=== PATIENT | female | born 1985 | race American Indian/Alaskan Native ===

== ENCOUNTER 2021-04-18 22:46 | Emergency (ER) | payer MEDICAID ==
[2021-04-19 01:31] LABS: Hematocrit 40.3 % (30.3-42.9); Mean Corpuscular HGB Conc 35 % (30-34); Mean Corpuscular Volume 97 fl (79-97); Platelet Count 234 K/mm3 (140-440); Red Blood Count 4.14 M/mm3 (3.65-5.03); Red Cell Distribution Width 13.5 % (13.2-15.2)
--- NOTE | 2021-04-19 01:43 | XRay Report ---
CHEST 2 VIEWS INDICATION: cough, shortness of breath, covid+. COMPARISON: None FINDINGS: SUPPORT DEVICES: None. HEART: Within normal limits. LUNGS/PLEURA: Mild patchy bibasilar predominant airspace opacities with no pleural effusion. No pneum othorax. ADDITIONAL FINDINGS: None. IMPRESSION: 1. Pulmonary findings as above. Signer Name: Sammy Hooper MD Signed: 04/19/2021 1:39 AM Workstation Name: [id number]
[2021-04-19 01:49] LABS: Alanine Aminotransferase 35 units/L (7-56); Albumin 3.3 g/dL (3.9-5); Blood Urea Nitrogen 9 mg/dL (7-17); Calcium 8.5 mg/dL (8.4-10.2); Hemolysis Index 2
[2021-04-19 01:50] LABS: BUN/Creatinine Ratio 15
[2021-04-19 02:16] LABS: RBC Morphology Normal; Total Cells Counted 100
[2021-04-19 03:44] VITALS: BP 103/56
--- NOTE | 2021-04-19 05:48 | Emergency Department Report ---
ED Shortness of Breath HPI - General Chief Complaint: Dyspnea/Respdistress Stated Complaint: SHORTNESS OF BREATH AND DIZZINESS + COVID ON 04/06 Time Seen by Provider: 04/19/21 04:23 Source: patient Mode of arrival: Ambulatory Limitations: No Limitations - History of Present Illness Initial Comments: 35-year-old F [place] female is 26 weeks presents emergency department complaining of pain diagnosed with Covid on April 06 and has residual cough and congestion shortness of breath and discomfort to her chest of an unknown etiology. She reports some nausea but no vomiting myalgias with coryza. But no hemoptysis no hematemesis hematochezia Severity: mild Quality: dull Consistency: constant Improves With: nothing Worsens With: nothing Associated Symptoms: cough Treatments Prior to Arrival: none - Related Data Previous Rx's Medication Instructions Recorded Last Taken Type Albuterol Mdi (or & Nicu Only) 1 puff IH QID PRN #8.5 gram 04/19/21 Unknown Rx [ProAir HFA Inhaler] Azithromycin [Zithromax] 250 mg PO DAILY #6 tablet 04/19/21 Unknown Rx Allergies Allergy/AdvReac Type Severity Reaction Status Date / Time No Known Allergies Allergy Unverified 04/19/21 01:02 ED Review of Systems ROS: Stated complaint: SHORTNESS OF BREATH AND DIZZINESS + COVID ON 04/06 Other details as noted in HPI Comment: All other systems reviewed and negative ED Past Medical Hx - Past Medical History Previous Medical History?: No - Surgical History Additional Surgical History: x2 - Medications Home Medications: Home Medications Medication Instructions Recorded Confirmed Last Taken Type Albuterol Mdi (or & Nicu Only) 1 puff IH QID PRN #8.5 gram 04/19/21 Unknown Rx [ProAir HFA Inhaler] Azithromycin [Zithromax] 250 mg PO DAILY #6 tablet 04/19/21 Unknown Rx ED Physical Exam - General Limitations: No Limitations General appearance: alert, in no apparent distress - Head Head exam: Present: atraumatic, normocephalic - Eye Eye exam: Present: normal appearance - ENT ENT exam: Present: mucous membranes moist - Neck Neck exam: Present: normal inspection - Respiratory Respiratory exam: Present: normal lung sounds bilaterally, rhonchi (To the base). Absent: respiratory distress - Cardiovascular Cardiovascular Exam: Present: regular rate, normal rhythm. Absent: systolic murmur, diastolic murmur, rubs, gallop - GI/Abdominal GI/Abdominal exam: Present: soft, normal bowel sounds - Extremities Exam Extremities exam: Present: normal inspection - Back Exam Back exam: Present: normal inspection - Neurological Exam Neurological exam: Present: alert, oriented X3 - Psychiatric Psychiatric exam: Present: normal affect, normal mood - Skin Skin exam: Present: warm, dry, intact, normal color. Absent: rash ED Course Vital Signs 04/19/21 00:56 Temperature 97.8 F Pulse Rate 99 H Respiratory 18 Rate Blood Pressure 103/56 O2 Sat by Pulse 96 Oximetry ED Medical Decision Making - Lab Data Result diagrams: 04/19/21 01:14 04/19/21 01:14 - Radiology Data Radiology results: report reviewed [facility] [address] [place] [address] XRay Report Signed Patient: FRANTZ HUNT MR#: [id number] : 1985 Acct:[id number] Age/Sex: 35 / F ADM Date: 04/18/21 Loc: ED Attending Dr: Ordering Physician: ED MD MARIANO Date of Service: 04/19/21 Procedure(s): XR chest routine 2V Accession Number(s): [id number] cc: ED MD MARIANO Fluoro Time In Minutes: CHEST 2 VIEWS INDICATION: cough, shortness of breath, covid+. COMPARISON: None FINDINGS: SUPPORT DEVICES: None. HEART: Within normal limits. LUNGS/PLEURA: Mild patchy bibasilar predominant airspace opacities with no pleural effusion. No pneumothorax. ADDITIONAL FINDINGS: None. IMPRESSION: 1. Pulmonary findings as above. Signer Name: Sammy Hooper MD Signed: 04/19/2021 1:39 AM Workstation Name: [id number] Transcribed By: JW Dictated By: Sammy Hooper MD Electronically Authenticated By: Sammy Hooper MD Signed Date/Time: 04/19/21138 DD/ 7 TD/TT: Print Cancel - Medical Decision Making This patient presents to the emergency department with fever and lower respiratory symptoms concerning for viral syndrome including flu and COVID-19. Patient has been diagnosed with COVID-19 infection April 06 and now progressively worsening symptoms have discovered that bilateral opacities suggestive of pneumonia and worsening symptoms.. Differential diagnosis includes other viral causes of lower respiratory symptoms, asthma, bronchitis. Patient is well- appearing with acceptable vitals, lacks comorbidities admission and a reassuring physical examination and is safe to be discharged home nasal swab for COVID testing is recommended. Provide strict return precautions and instructions on self isolation/quarantine and anticipatory guidance. During ambulation patient maintained normal saturations and heart rate returned to baseline after 2 minutes. There was no shortness of breath or dyspnea Critical care attestation.: If time is entered above; I have spent that time in minutes in the direct care of this critically ill patient, excluding procedure time. ED Disposition Clinical Impression: Pneumonia due to COVID-19 virus, COVID-19 affecting in second trimester Disposition: DC-01 TO HOME OR SELFCARE Is pt being admited?: No Does the pt Need Aspirin: No Condition: Stable Instructions: COVID-19 Frequently Asked Questions, COVID-19, and COVID-19, Prevent the Spread of COVID-19 if You Are Sick - CDC, Bacterial Pneumonia (ED) Additional Instructions: Please adhere to the patient instructions as we discussed although currently your symptoms are not consistent with an overt assessment of COVID-19 this could change within the next few days. Please return to the emergency department should you experience any coughing up blood, shortness of breath, severe fever, chest pain, or any suggestion that your condition is worsening. Your chest x- ray was normal your vital signs were stable with a slight elevation in your heart rate at 106 please make sure to hydrate well and take the antipyretics for your temperature increased on your antioxidant vitamins also obtain a pulse oximeter/pulse ox of others [id number] and monitor your saturation should your saturations drop below 93% please follow-up with the emergency department for reevaluation and from further intervention. Make sure you take all antibiotics as as prescribed in their entirety. Prescriptions: Albuterol Mdi (or & Nicu Only) [ProAir HFA Inhaler] 1 puff IH QID PRN #8.5 gram PRN Reason: sob Azithromycin [Zithromax] 250 mg PO DAILY #6 tablet Referrals: [facility] [Provider Group] - 3-5 Days PRIMARY CARE,MD [Primary Care Provider] - 3-5 Days
== END 2021-04-19 08:03 | disposition home or self-care (01) ==
LOC: ED 22:46
DX: O98.512 Other viral diseases complicating pregnancy, second trimester (principal); U07.1 COVID-19; J12.82 Pneumonia due to coronavirus disease 2019; Z3A.26 26 weeks gestation of pregnancy
CPT/HCPCS: 36415; 71046; 80053; 85007; 85025; 99283

== ENCOUNTER 2021-06-23 06:01 | Inpatient (IN) | payer MEDICAID ==
[2021-06-23] MEDS ORDERED: LACTATED RINGERS 1,000 ML ONE ×2 (06:42→08:56)
[2021-06-23] MEDS ORDERED: OXYTOCIN DRIP 30 UNITS/500 ML BAG IV SCH ×2 (07:00→11:32)
[2021-06-23] MEDS ORDERED: FAMOTIDINE 20 MG/2 ML INJ IV SCH (07:00)
[2021-06-23] MEDS ORDERED: BICITRA ORAL LIQD 30ML PO SCH (07:00)
[2021-06-23] MEDS ORDERED: LACTATED RINGERS 1,000 ML IV SCH (07:00)
[2021-06-23] MEDS ORDERED: METOCLOPRAMIDE 10 MG/2 ML INJ IV SCH (07:00)
[2021-06-23 07:10] LABS: Basophils # (Auto) 0.1 K/mm3 (0.0-0.1); Basophils % (Auto) 0.9 % (0.0-1.8); Eosinophils # (Auto) 0.1 K/mm3 (0.0-0.4); Eosinophils % (Auto) 0.7 % (0.0-4.3); Hematocrit 38.1 % (30.3-42.9); Hemoglobin 12.6 gm/dl (10.1-14.3); Lymphocytes # (Auto) 1.8 K/mm3 (1.2-5.4); Lymphocytes % (Auto) 23.8 % (13.4-35.0); Mean Corpuscular HGB Conc 33 % (30-34); Mean Corpuscular Volume 97 fl (79-97); Monocytes # (Auto) 0.7 K/mm3 (0.0-0.8); Platelet Count 202 K/mm3 (140-440); Red Blood Count 3.91 M/mm3 (3.65-5.03)
--- NOTE | 2021-06-23 07:50 | History and Physical Report ---
History of Present Illness Date of examination: 06/23/21 Date of admission: 06/23/21 06:01 Chief complaint: I'm here for my and to get my tubes tied History of present illness: Pt is a 35 year old who presesnts for elective repeat along with tubal ligation. Pt has had an uncomplicated course except for some irregularity with visits. All labs have been normal Past History Past Medical History: no pertinent history Past Surgical History: section (x2) Social history: single - Obstetrical History Expected Date of Delivery: 06/30/21 Actual Gestation: 39 Week(s) 2 Day(s) : 6 Medications and Allergies Allergies Allergy/AdvReac Type Severity Reaction Status Date / Time No Known Allergies Allergy Unverified 04/19/21 01:02 Home Medications Medication Instructions Recorded Confirmed Last Taken Type Albuterol Mdi (or & Nicu Only) 1 puff IH QID PRN #8.5 gram 04/19/21 Unknown Rx [ProAir HFA Inhaler] Azithromycin [Zithromax] 250 mg PO DAILY #6 tablet 04/19/21 Unknown Rx Active Meds: Active Medications Citric Acid/Sodium Citrate (Bicitra Oral Liqd 30ml) 30 ml PO PREOP JENSEN Stop: 06/23/21 15:00 Last Admin: 06/23/21 07:24 Dose: 30 ml Documented by: Famotidine (Famotidine 20 Mg/2 Ml Inj) 20 mg IV PREOP JENSEN Stop: 06/23/21 15:00 Last Admin: 06/23/21 07:24 Dose: 20 mg Documented by: Lactated Ringer's (Lactated Ringers) 1,000 mls @ 2,250 mls/hr IV PREOP JENSEN Stop: 06/24/21 07:27 Oxytocin/Sodium Chloride (Pitocin/Ns 30 Unit/500ml) 30 units in 500 mls @ 0 mls/hr IV TITR JENSEN; Protocol Metoclopramide HCl (Metoclopramide 10 Mg/2 Ml Inj) 10 mg IV PREOP JENSEN Stop: 06/23/21 14:00 Last Admin: 06/23/21 07:25 Dose: 10 mg Documented by: Review of Systems All systems: negative Genitourinary: deferred - Vital Signs Vital signs: Vital Signs Pulse Pulse Ox 94 H 96 06/23/21 06:51 06/23/21 06:51 Temp Pulse Resp BP Pulse Ox 88 111/71 97 06/23/21 07:36 06/23/21 07:03 06/23/21 07:36 - Physical Exam Breasts: Positive: deferred Cardiovascular: Regular rate, Normal S1, Normal S2 Lungs: Positive: Clear to auscultation, Normal air movement Abdomen: Positive: normal appearance, soft, normal bowel sounds Genitourinary (Female): Positive: normal external genitalia, normal perenium Uterus: Positive: enlarged Extremities: Positive: normal - Obstetrical FHR: auscultation normal Cervical Dilatation: 0 Results Result Diagrams: 06/23/21 23:16 Abnormal lab results 06/23/21 Range/Units 06:45 Grady % (Auto) 9.0 H (0.0-7.3) % All other labs normal. Assessment and Plan IUP at 39.2 weeks here for elective repeat with btl. Admit for same. All consents have been signed. Proceed with delivery.
[2021-06-23] MEDS ORDERED: ePHEDrine SULFATE 50 MG/1 ML INJ ONE (07:54)
[2021-06-23] MEDS ORDERED: PHENYLEPHRINE/NS 1,000 MCG/10 ML SYRINGE (OR USE) IV ONE (07:54)
[2021-06-23] MEDS ORDERED: dexAMETHasone 20 MG/5 ML VIAL ONE (07:55)
[2021-06-23] MEDS ORDERED: BUPIVACAINE/PF (0.5%) 5 MG/1 ML 30 ML VIAL INFILTRATI ONE (07:55)
[2021-06-23] MEDS ORDERED: KETOROLAC 30 MG/1 ML INJ ONE (07:55)
[2021-06-23] MEDS ORDERED: ONDANSETRON 4 MG/2 ML INJ ONE ×2 (07:55→09:00)
--- NOTE | 2021-06-23 08:09 | Anesthesia Day of Surgery ---
Anesthesia Day of Surgery - Day of Surgery Patient Examined: Yes Patient H&P Reviewed: Yes Patient is NPO: Yes Beta Blockers: No Cardiac Clearance: No Pulmonary Clearance: No Neo's Test: N/A
--- NOTE | 2021-06-23 08:10 | Anesthesia Consultation ---
Anesthesia Consult and Med Hx Date of service: 06/23/21 - Airway Anesthetic Teeth Evaluation: Good ROM Head & Neck: Adequate Mental/Hyoid Distance: Adequate Mallampati Class: Class III Intubation Access Assessment: Probably Good - Pulmonary Exam CTA: Yes - Cardiac Exam Cardiac Exam: RRR - Pre-Operative Health Status ASA Pre-Surgery Classification: ASA2 Proposed Anesthetic Plan: Spinal Nerve Block: TAP - Pulmonary Hx Smoking: Yes Hx Asthma: No COPD: No Hx Pneumonia: No Hx Sleep Apnea: No - Cardiovascular System Hx Hypertension: No Hx Heart Attack/AMI: No Hx Angina: No - Central Nervous System Hx Seizures: No Hx Psychiatric Problems: No - Gastrointestinal Hx Gastroesophageal Reflux Disease: No - Endocrine Hx Renal Disease: No Hx End Stage Renal Disease: No Hx Hypothyroidism: No Hx Hyperthyroidism: No - Hematic Hx Anemia: No Hx Sickle Cell Disease: No - Other Systems Hx Alcohol Use: Yes - Additional Comments Anesthesia Medical History Comments: previous c/s x2
--- NOTE | 2021-06-23 08:11 | Progress Note ---
Spinal Anesthesia Block - Spinal Anesthesia Block Start Time: 07:45 Stop Time: 07:50 Performed by:: ZAKIYA MADDEN ([facility]) Procedure: Spinal anesthesia block is being performed for [C/S]. H&P, labs have been reviewed. Patient's questions and concerns have been answered. Informed consent has been performed. Timeout has was performed. Patient in sitting position on side of bed. Sterile prep and drape was performed. 3 mL 1% lid ocaine skin wheal at L [3]-L [4]. Needle introducer advanced. 25-gauge spinal needle advanced, [+] CSF [-] blood. [Marcaine 10mg and Precedex 5mcg] Spinal dose was given. All needles removed. Patient tolerated procedure well.
[2021-06-23] MEDS ORDERED: OXYTOCIN 10 UNIT/1 ML INJ ONE (08:35)
[2021-06-23] MEDS ORDERED: PROMETHAZINE 25 MG RECT SUPP PR PRN (09:00)
[2021-06-23] MEDS ORDERED: NalbUPHINE 10 MG/1 ML INJ IV PRN (09:00)
[2021-06-23] MEDS ORDERED: PROMETHAZINE 25 MG TAB PO PRN (09:00)
[2021-06-23] MEDS ORDERED: diphenhydrAMINE 50 MG/ML VIAL IV PRN (09:00)
[2021-06-23] MEDS ORDERED: NALOXONE 0.4 MG/1 ML INJ IV PRN ×2 (09:00→11:32)
[2021-06-23] MEDS ORDERED: HYDROmorphone 1 MG/1 ML INJ IV PRN (09:00)
[2021-06-23] MEDS ORDERED: ONDANSETRON 4 MG/2 ML INJ IV PRN (09:00)
--- NOTE | 2021-06-23 09:11 | Operative Report ---
Operative Report Operative Report: Preoperative diagnosis: Intrauterine at 39 weeks 2. Previous x2 3. Undesired fertility Postoperative diagnosis: Same Procedure: Repeat low transverse section, Bilateral tubal ligation Surgeon: Dr. Yvette Bell EBL: 500cc Urine output: 200 mL IV fluids: 1100 mL Findings: Viable male in the vertex presentation Weight 6 lbs. 10 oz. 3036 g Apgars 8 and 9. Otherwise normal pelvic anatomy Specimens: Portion of right and left fallopian tube Complications: None Procedure: The patient was admitted to the OR with IV running and in place. She was properly identified as herself. She was given spinal anesthesia in the OR without difficulty. She was placed in the dorsal supine position with a leftward tilt. A Crabtree catheter was inserted. She was then prepped and draped in the normal sterile fashion. An Allis test was used to confirm adequate anesthesia. Once confirmed, the incision was made with the scalpel and carried to the underlying fascia using the scalpel and the Bovie. The fascia was incised in the midline and incision was extended bilaterally using the curved Angeles scissors. The fascia was then dissected from the underlying rectus muscles in a series of sharp and blunt dissection using the Angeles scissors. Muscles were in the in the midline sharply using Metzenbaum scissors and the peritoneum was entered into bluntly using the surgeon's fingers. A bladder blade was then placed into the incision to protect the bladder. Following this the bladder flap was created. Hysterotomy incision was then made in the scalpel. Upon uterine entry, the amniotic sac was ruptured for clear fluid. The infant was then delivered without difficulty.. His mouth and nose were suctioned on the field. The cord was clamped and cut and he was handed to the waiting NICU personnel. The uterus was then exteriorized and cleared of all clots and debris. The hysterotomy incision was then closed in a running locked fashion using 0 Vicryl. The abdomen was then copiously irrigated with warm normal saline. Attention was turned the the fallopian tubes. Each tube was identified and followed out the the fimbriated end. Each tube was grasped in the midportion and ligated in the [place] style Tubal ligation. Following this the uterus was replaced into the abdominal cavity. At this point the muscles were reapproximated in the midline using individual sutures of 0 Vicryl. Following this the fascia was closed in a running fashion using 0 Vicryl. Tissue was then copiously irrigated. Skin was closed in a running fashion using 3-0 Monocryl. The sponge lap needle and instrument counts were correct 2. The patient tolerated the procedure well. She was taken to recovery in stable condition.
--- NOTE | 2021-06-23 09:14 | Procedure Note ---
OB Delivery Note - Delivery Date of Delivery: 06/23/21 Estimated blood loss: 500cc - Section Preop diagnosis: repeat , desires sterilization Postop diagnosis: same section procedure: repeat low transverse, bilateral tubal ligation Complications: none - Infant A at 1 minute: 9 at 5 minutes: 9 Infant Gender: Female (3000g 6 pounds 10 ounces)
[2021-06-23] MEDS ORDERED: LANOLIN/ZINC/DIMETHICONE (LANSINOH) 7 GM TP PRN (11:32)
[2021-06-23] MEDS ORDERED: SIMETHICONE 80 MG CHEW TAB PO PRN (11:32)
[2021-06-23] MEDS ORDERED: IBUPROFEN 800 MG TAB PO PRN (11:32)
[2021-06-23] MEDS ORDERED: MORPHINE 4 MG/1 ML INJ IV PRN (11:32)
[2021-06-23] MEDS ORDERED: WITCH HAZEL/ GLYCERIN PAD TP PRN (11:32)
[2021-06-23] MEDS ORDERED: D5W/LACTATED RINGERS 1,000 ML IV SCH (12:00)
--- NOTE | 2021-06-23 17:22 | Post Anesthesia Evaluation ---
- Post Anesthesia Evaluation Patient Participated: Yes Airway Patent: Yes Stable Respiratory Function: Yes Nausea/Vomiting: No Temp > 96.8F: Yes Pain Manageable: Yes Adequeate Hydration: Yes Anesthesia Complications: No Block Receding Appropriately: Yes Patient on Ventilator: No
[2021-06-23] MEDS: PRENATAL VIT27-FE FUMARATE-FOLIC ACID VIT TAB PO SCH (18:45)
[2021-06-24 00:18] LABS: Hematocrit 37.8 % (30.3-42.9); Hemoglobin 12.8 gm/dl (10.1-14.3)
[2021-06-24] MEDS: oxyCODONE /ACETAMINOPHEN 5-325MG TAB PO PRN ×3 (14:03→22:10)
[2021-06-24] MEDS: PRENATAL VIT27-FE FUMARATE-FOLIC ACID VIT TAB PO SCH (14:03)
[2021-06-25] MEDS: oxyCODONE /ACETAMINOPHEN 5-325MG TAB PO PRN ×2 (04:00→13:08)
[2021-06-25] MEDS: PRENATAL VIT27-FE FUMARATE-FOLIC ACID VIT TAB PO SCH (09:57)
--- NOTE | 2021-06-25 10:26 | Progress Note ---
Assessment and Plan POD 1 s/p rltcs. Pt is doing well. Tolerating po, ambulating and voiding without difficulty. Plan for discharge on tomorrow. Subjective - Subjective Date of service: 06/24/21 Interval history: Pt has no complants Patient reports: appetite normal, voiding normally, pain well controlled, ambulating normally : doing well Objective - Vital Signs Latest vital signs: Vital Signs Temp Pulse Resp BP BP Pulse Ox Pulse Ox 06/25/21 08:12 97.7 F 73 16 120/79 97 06/25/21 00:50 98.2 F 68 20 123/68 98 06/24/21 20:30 96 06/24/21 16:21 97.3 F L 72 18 117/73 96 06/24/21 14:17 96 06/24/21 12:00 96 Intake and Output 06/24/21 06/25/21 06/25/21 22:59 06:59 14:59 Intake Total 240 360 Balance 240 360 Intake: Oral 360 Intake, Free Water 240 Other: Total, Intake Amount 360 # Voids Void 1 1 - Exam Breasts: Present: deferred Cardiovascular: Present: Regular rate, Normal S1, Normal S2 Lungs: Present: Clear to auscultation, Normal air movement Abdomen: Present: normal appearance, soft, normal bowel sounds Uterus: Present: normal, firm Extremities: Present: normal Incision: Present: normal, dry, intact, dressed
--- NOTE | 2021-06-25 10:29 | Discharge Summary ---
Providers - Providers Date of Admission: 06/23/21 06:01 Date of discharge: 06/25/21 Attending physician: ELISE HESS Primary care physician: NURSE OBG[facility] Hospitalization Reason for admission: section Delivery: Procedure: repeat low transverse Procedure details: see op report Episiotomy: none Laceration: none Incision: normal, dry, warm, dressed complications: none Discharge diagnosis: IUP at term delivered baby: female Condition at discharge: Good Disposition: 01 HOME / SELF CARE / HOMELESS Plan - Provider Discharge Summary Activity: routine, no sex for 6 weeks, no heavy lifting 4 weeks, no strenuous exercise Diet: routine Instructions: routine Additional instructions: [] Smoking cessation referral if applicable(refer to patient education folder for contact #) [] Refer to [facility]'s [facility] Booklet Call your doctor immediately for: * Fever > 100.5 * Heavy vaginal bleeding ( >1 pad per hour) * Severe persistent headache * Shortness of breath * Reddened, hot, painful area to leg or breast * Drainage or odor from incision. * Keep incision clean and dry at all times and follow doctor's instructions regarding bathing/showering - Follow up plan Follow up: ELISE HESS MD [Staff Physician] - 14 Days
[2021-06-25 12:40] VITALS: BP 124/79
== END 2021-06-25 14:30 | disposition home or self-care (01) | DRG 766 ==
LOC: APU 06:01 → OB 10:26
PROVIDERS: ADMIT Obstetrics & Gynecology; ATTEND Obstetrics & Gynecology
PROC: 10D00Z1 Extraction of Products of Conception, Low, Open Approach (ICD-10-PCS; principal; 2021-06-23)
PROC: 0UB70ZZ Excision of Bilateral Fallopian Tubes, Open Approach (ICD-10-PCS; 2021-06-23)
DX: O34.211 Maternal care for low transverse scar from previous cesarean delivery (principal); Z3A.39 39 weeks gestation of pregnancy; Z37.0 Single live birth; Z20.822 Contact with and (suspected) exposure to COVID-19; Z30.2 Encounter for sterilization
CPT/HCPCS: 36415; 85014; 85018; 85025; 86850; 86900; 86901; 88302; 88305; G0378; J1100; J1885; J2370; J2405; J2590; J2765; J3490; J7120; U0003